=== PATIENT | male | born 1980 | race American Indian/Alaskan Native ===

== ENCOUNTER 2019-09-21 00:28 | Emergency (ER) | payer SELFPAY ==
--- NOTE | 2019-09-21 01:35 | Cat Scan Report ---
CT head without contrast INDICATION : Headache following injury TECHNIQUE: Axial imaging performed from the skull apex through the skull base without the use of con trast. All CT examinations performed at this facility utilize dose modulation, iterative reconstruct ion or weight-based dosing, when appropriate, to reduce radiation dose to as low as reasonably achiev able. COMPARISON: None FINDINGS: No acute intracranial hemorrhage or parenchymal abnormality. Ventricles are normal in si ze and appear symmetric. Soft tissues including the orbits appear normal. No acute osseous abnorm ality. Sinuses and mastoid air cells are clear. IMPRESSION: No acute abnormality. Signer Name: Gabriel Hardwick MD Signed: 09/21/2019 1:31 AM Workstation Name: [id number]
[2019-09-21 01:50] LABS: Basophils % (Auto) 0.3 % (0.0-1.8); Eosinophils % (Auto) 0.1 % (0.0-4.3); Hematocrit 47.5 % (35.5-45.6); Hemoglobin 15.9 gm/dl (11.8-15.2); Lymphocytes # (Auto) 2.2 K/mm3 (1.2-5.4); Lymphocytes % (Auto) 17.9 % (13.4-35.0); Mean Corpuscular HGB Conc 34 % (32-34); Mean Corpuscular Volume 86 fl (84-94); Monocytes # (Auto) 0.6 K/mm3 (0.0-0.8); Monocytes % (Auto) 5.2 % (0.0-7.3); Platelet Count 211 K/mm3 (140-440); Red Blood Count 5.56 M/mm3 (3.65-5.03); Red Cell Distribution Width 13.6 % (13.2-15.2)
[2019-09-21 02:03] LABS: BUN/Creatinine Ratio 16; Blood Urea Nitrogen 11 mg/dL (9-20); Calcium 9.7 mg/dL (8.4-10.2); Hemolysis Index 10
[2019-09-21] MEDS ORDERED: SODIUM CHLORIDE 0.9% 1000 ML 1,000 ML IV ONE (03:27)
--- NOTE | 2019-09-21 03:33 | Emergency Department Report ---
HPI - General Chief Complaint: Head Injury Time Seen by Provider: 09/21/19 03:17 - HPI HPI: Room 19 The patient is a 39-year-old male present with a chief complaint of syncopal episode. Patient states he was outside in the sun consuming a cup of alcohol at approximately 16: 00. The patient states he felt himself sweating so he stood up and then had a syncopal episode. Patient does not remember falling. The patient states he awakened feeling woozy and dizzy but he got up and went to his room had a second syncopal episode. Patient states he awakened with his family standing over him telling him he had passed out. The patient reportedly had 2-3 episodes of vomiting. Patient states he gets dizzy whenever he stands currently ED Past Medical Hx - Past Medical History Previous Medical History?: No - Surgical History Past Surgical History?: No - Family History Family history: no significant - Social History Smoking Status: Current Every Day Smoker (1/4 pack/day) Substance Use Type: None (Denies illicit drug use), Alcohol (Occasional) - Medications Home Medications: Home Medications Medication Instructions Recorded Confirmed Last Taken Type No Known Home Medications [No 09/21/19 09/21/19 Unknown History Reported Home Medications] ED Review of Systems ROS: Stated complaint: POSS CONCUSSION Other details as noted in HPI Constitutional: diaphoresis Respiratory: no symptoms reported Endocrine: no symptoms reported Gastrointestinal: nausea, vomiting Neurological: other (Dizziness) Physical Exam - Physical Exam Vital Signs: Vital Signs 09/21/19 09/21/19 09/21/19 00:31 03:06 03:18 Temperature 97.8 F Pulse Rate 98 H 72 Respiratory 18 16 14 Rate Blood Pressure 157/92 Blood Pressure [Right] O2 Sat by Pulse 99 100 99 Oximetry 09/21/19 03:19 Temperature Pulse Rate 83 Respiratory 16 Rate Blood Pressure Blood Pressure 140/79 [Right] O2 Sat by Pulse 100 Oximetry Physical Exam: GENERAL: The patient is well-developed well-nourished male sitting on stretcher not appearing to be in acute distress HEENT: Normocephalic. Atraumatic. Extraocular motions are intact. Patient has moist mucous membranes. NECK: Supple. Trachea midline CHEST/LUNGS: Clear to auscultation. There is no respiratory distress noted. HEART/CARDIOVASCULAR: Regular. There is no tachycardia. There is no gallop rub or murmur. ABDOMEN: Abdomen is soft, nontender. Patient has normal bowel sounds. There is no abdominal distention. SKIN: There is no rash. There is no edema. There is no diaphoresis. NEURO: The patient is awake, alert, and oriented. The patient is cooperative. The patient has no focal neurologic deficits. The patient has normal speech. Cranial nerves II through XII grossly intact MUSCULOSKELETAL: There is no evidence of acute injury. ED Course Vital Signs 09/21/19 09/21/19 09/21/19 00:31 03:06 03:18 Temperature 97.8 F Pulse Rate 98 H 72 Respiratory 18 16 14 Rate Blood Pressure 157/92 Blood Pressure [Right] O2 Sat by Pulse 99 100 99 Oximetry 09/21/19 03:19 Temperature Pulse Rate 83 Respiratory 16 Rate Blood Pressure Blood Pressure 140/79 [Right] O2 Sat by Pulse 100 Oximetry - Reevaluation(s) Reevaluation #1: 09/21/19 05:09 Patient ambulated by nurse. States patient feels better and is currently asymptomatic ED Medical Decision Making - Lab Data Result diagrams: 09/21/19 01:15 09/21/19 01:15 - EKG Data -: EKG Interpreted by [facility] EKG shows normal: sinus rhythm Rate: normal - EKG Data When compared to previous EKG there are: previous EKG unavailable Interpretation: other (No ischemic changes seen) - Differential Diagnosis Dehydration, syncope, alcohol intoxication Critical care attestation.: If time is entered above; I have spent that time in minutes in the direct care of this critically ill patient, excluding procedure time. ED Disposition Clinical Impression: Closed head injury, Dehydration, Orthostasis Disposition: DC-01 TO HOME OR SELFCARE Is pt being admited?: No Does the pt Need Aspirin: No Condition: Stable Instructions: Dehydration (ED) Additional Instructions: Return to the emergency department should you develop worsening symptoms, inability to tolerate food or liquids, high fever or any other concerns Referrals: ANNA MARIE RICARDO MD [Primary Care Provider] - 3-5 Days Time of Disposition: 05:10
[2019-09-21 05:41] VITALS: BP 128/66
== END 2019-09-21 05:23 | disposition home or self-care (01) ==
LOC: ED 00:28
DX: S09.90XA Unspecified injury of head, initial encounter (principal); E86.0 Dehydration; I95.1 Orthostatic hypotension; F17.200 Nicotine dependence, unspecified, uncomplicated; X58.XXXA Exposure to other specified factors, initial encounter; Y93.89 Activity, other specified; Y92.89 Other specified places as the place of occurrence of the external cause; Y99.8 Other external cause status
CPT/HCPCS: 36415; 70450; 80048; 82962; 84484; 85025; 93005; 96360; 99284; J7030